=== PATIENT | male | born 1985 | race Caucasian/White ===

== ENCOUNTER 2020-07-02 06:57 | Outpatient (NON) | payer OTHER, SELFPAY ==
[2020-07-03 18:06] LABS: SARS-CoV-2 RNA PCR Negative
== END 2020-07-02 06:58 ==
LOC: ANHCOVIDDT 07:02
PROVIDERS: Visit Provider Registered Nurse
DX: Z20.828 Contact with and (suspected) exposure to other viral communicable diseases (principal); R05 Cough; J02.9 Acute pharyngitis, unspecified
CPT/HCPCS: 87635; C9803; U0003

== ENCOUNTER 2023-12-27 10:42 | Emergency (ER) | payer OTHER, SELFPAY ==
[2023-12-27 10:50] VITALS: BP 128/76; PULSE 71; RESP 20; TEMP 36.9; O2SAT 99
--- NOTE | 2023-12-27 11:44 | ED.WOUNDLAC ---
HPI - Wound/Laceration General Chief Complaint: Wound/Laceration Stated Complaint: Cut Finger Time Seen by Provider: 12/27/23 11:38 Source: patient and RN notes reviewed Mode of arrival: ambulatory Limitations: no limitations History of Present Illness HPI narrative: Patient presents today with a laceration to his right 2nd finger. He was opening a package this morning with a pocket knife, slipped and sliced his finger. Injury occurred just prior to arrival. No [id number] treatment prior to arrival. Up-to-date on tetanus vaccine. Denies numbness or tingling. Related Data Home Medications Medication Instructions Recorded Confirmed citalopram 40 mg tablet 60 mg PO DAILY 12/27/23 12/27/23 dextroamphetamine sulfate 10 mg 10 mg PO DAILY 12/27/23 12/27/23 capsule,extended release vilazodone 20 mg tablet 20 mg PO DAILY 12/27/23 12/27/23 Allergies Allergy/AdvReac Type Severity Reaction Status Date / Time No Known Allergies Allergy Verified 12/27/23 11:41 Review of Systems Review of Systems: CONSTITUTIONAL: Denies body aches, fever, chills, or sweats. EYES: Denies visual changes, redness, or discharge. ENT: Denies rhinorrhea, congestion, sore throat, or otalgia. CARDIOVASCULAR: Denies chest pain, palpitations, or edema. RESPIRATORY: Denies cough or dyspnea. GASTROINTESTINAL: Denies abdominal pain, nausea, vomiting, or diarrhea. GENITOURINARY: Denies dysuria or hematuria. SKIN: + finger laceration MUSCULOSKELETAL: Denies back pain, joint pain, or myalgia. NEUROLOGIC: Denies headache, numbness, tingling, or weakness. PSYCH: Denies depression or anxiety. PMFSH Comments At time of signature, I have reviewed and agree with nursing past medical, surgical, social and family history unless otherwise noted. Please see nursing chart for further information. There is no relevant family history pertinent to the presenting complaint Exam Narrative: GENERAL: Well-appearing, well-nourished, and in no acute distress. HEAD: Normocephalic, atraumatic. EYES: EOMI. No redness or drainage. Conjunctivae normal. ENT: Mucous membranes pink and moist. NECK: Normal AROM. CHEST: No respiratory distress. EXTREMITIES: Right 2nd finger: 2 cm partial-thickness linear laceration to the palmar aspect of the distal phalanx. No active bleeding. Distal sensation intact. Capillary refill normal. Full AROM against resistance SKIN: Warm, dry, no rash. Capillary refill normal. Normal skin turgor. NEURO: No focal deficits. Alert and oriented x3. Gait steady. PSYCH: Normal affect. No signs of depression or anxiety. Course Course Level of Care: Express Care Visit Vital Signs Vital signs: Vital Signs Temperature 98.5 F 12/27/23 10:50 Pulse Rate 71 12/27/23 10:50 Respiratory Rate 20 12/27/23 10:50 Blood Pressure 128/76 12/27/23 10:50 Pulse Oximetry 99 12/27/23 10:50 Oxygen Delivery Room Air 12/27/23 10:50 Temperature 98.5 F 12/27/23 10:50 Pulse Rate 71 12/27/23 10:50 Respiratory Rate 20 12/27/23 10:50 Blood Pressure 128/76 12/27/23 10:50 Pulse Oximetry 99 12/27/23 10:50 Oxygen Delivery Room Air 12/27/23 10:50 Reviewed Procedures Laceration Laceration 1: Date: 12/27/23 Time: 12:08 Site: hand Side (If applicable): right Size (cm): 2 Description: linear Depth: simple, single layer Local Anesthetic: lidocaine 1% Amount of anesthesia used (mL): 2 Pre-repair: wound explored and irrigated ====== Skin Level ====== Skin layer closed with: nylon Size (cm): 5-0 Number of sutures: 5 Technique: simple, interrupted ====== Subcutaneous Layer ====== ====== Muscle Layer ====== ====== Tendon Layer ====== Dressing: Non adherent dressing MDM - Wound/Laceration MDM Narrative Medical decision making narrative: Laceration repaired. Care instructions given
== END 2023-12-27 12:13 | disposition home or self-care (01) ==
PROVIDERS: Emergency Provider Nurse Practitioner; PCP Registered Nurse
DX: S61.210A Laceration without foreign body of right index finger without damage to nail, initial encounter (principal); W26.0XXA Contact with knife, initial encounter; F41.9 Anxiety disorder, unspecified
CPT/HCPCS: 12001; 99212; G0463